=== PATIENT | male | born 1990 | race Caucasian/White ===

== ENCOUNTER 2023-11-22 15:03 | Emergency (ER) | payer OTHER ==
[2023-11-22] MEDS ORDERED: Fluorescein Opthalmic Strip ONE (15:25)
[2023-11-22] MEDS ORDERED: Tetracaine 0.5% PF 4 ML BOT ONE (15:25)
== END 2023-11-22 16:33 ==
LOC: CSHERS 15:03 → EEVIPCON 15:03 → CSHERS 16:33
DX: T15.01XA Foreign body in cornea, right eye, initial encounter (principal); W44.8XXA Other foreign body entering into or through a natural orifice, initial encounter
CPT/HCPCS: 99283